=== PATIENT | male | born 1970 | race Caucasian/White ===

== ENCOUNTER 2017-03-21 19:57 | Emergency (ER) | payer MEDICARE ==
[2017-07-12] MEDS ORDERED: NORCO 5-325 TA1 EACH PO (12:42)
== END 2017-03-21 20:30 | disposition home or self-care (01) ==
LOC: ER1 19:57
PROVIDERS: Internal Medicine Gastroenterology
PROC: 0DJ08ZZ Inspection of Upper Intestinal Tract, Via Natural or Artificial Opening Endoscopic (ICD-10-PCS; principal; 2017-03-21 21:25)
DX: T17.228A Food in pharynx causing other injury, initial encounter (principal); F17.210 Nicotine dependence, cigarettes, uncomplicated; F12.10 Cannabis abuse, uncomplicated; X58.XXXA Exposure to other specified factors, initial encounter; K21.0 Gastro-esophageal reflux disease with esophagitis; K44.9 Diaphragmatic hernia without obstruction or gangrene
CPT/HCPCS: 99283; J2250; J3010; J7040